=== PATIENT | male | born 1975 | race American Indian/Alaskan Native ===

== ENCOUNTER 2016-09-25 01:03 | Emergency (ER) | payer MEDICAID, OTHER ==
[2016-09-25 01:45] LABS: CHLORIDE,CL 103 mmol/L (101-111); SODIUM,NA 140 mmol/L (135-145)
[2016-09-25 01:56] LABS: ACETAMINOPHEN < 10
[2016-09-25 02:06] VITALS: BP 164/98
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
--- NOTE | 2016-09-25 18:44 | EKG ---
09/25/2016 - SUKHWINDER BENNETT - TIME: 1:16 a.m. EKG per my reading shows sinus rhythm at the rate of [address] changes[address] [facility] /[id number]
== END 2016-09-25 02:34 ==
LOC: DL.ED 01:03
DX: I63.40 Cerebral infarction due to embolism of unspecified cerebral artery (principal); F17.210 Nicotine dependence, cigarettes, uncomplicated
CPT/HCPCS: 36415; 51701; 70450; 71010; 80053; 82140; 82150; 82962; 83605; 83690; 83735; 84443; 84484; 85025; 85610; 93005; 99285; G0479; G0480

== ENCOUNTER 2016-11-03 20:59 | Emergency (ER) | payer MEDICAID, OTHER ==
[2016-11-03 21:03] VITALS: BP 156/100
--- NOTE | 2016-11-03 21:06 | EDM.PDOC ---
ED HPI Trauma - General Chief Complaint: Lower Extremity Injury/Pain Stated Complaint: AMB Time Seen by Provider: 11/03/16 21:05 Source: Reports: Patient, EMS History Limitations: Reports: No limitations - History of Present Illness INITIAL COMMENTS - FREE TEXT/NARRATIVE: jumped from bunk bed twisted ankle. Allergies/ADRs: Allergies No Known Allergies Allergy (Verified 11/03/16 20:59) Home Medications: Ambulatory Orders Aspirin 81 mg PO DAILY 11/03/16 [Confirmed 11/03/16] Past Medical History - Past Health History Medical/Surgical History: Denies Medical/Surgical History HEENT History: Reports: None Cardiovascular History: Reports: None Respiratory History: Reports: None Gastrointestinal History: Reports: None Genitourinary History: Reports: None Musculoskeletal History: Reports: None Neurological History: Reports: CVA, TIA Other Neuro History: acute slight stroke Psychiatric History: Reports: None Endocrine/Metabolic History: Reports: None Hematologic History: Reports: None Immunologic History: Reports: None Oncologic (Cancer) History: Reports: None Dermatologic History: Reports: None Social & Family History - Tobacco Use Smoking Status *Q: Never Smoker Years of Tobacco use: 20 Packs/Tins Daily: 1 - Recreational Drug Use Recreational Drug Use: No Review of Systems - Review of Systems Review Of Systems: ROS reveals no pertinent complaints other than HPI. Trauma Exam - Physical Exam Exam: See Below Exam Limited By: No limitations General Appearance: Reports: alert, WD/WN, mild distress, other (ankle pain) Head: Reports: atraumatic Ears: Reports: hearing grossly normal Throat/Mouth: Reports: Normal voice, No airway compromise Neck: Reports: non-tender, full range of motion Respiratory Exam: Reports: no respiratory distress Cardiovascular: Reports: regular rate, rhythm GI/Abdominal: Reports: soft, non tender Extremities: Reports: pain with movement, tenderness, unable to bear weight, other (swelling, no gorss D/D, NV wnl) Neurologic: Reports: no motor/sensory deficits, alert, normal mood/affect, oriented x 3 Skin: Reports: Normal color, Warm/dry Course - Vital Signs Last Recorded V/S: Last Vital Signs Temp 35.8 C 11/03/16 21:00 Pulse 80 11/03/16 21:00 Resp 20 11/03/16 21:00 BP 156/100 H 11/03/16 21:00 Pulse Ox 97 11/03/16 21:00 - Orders/Labs/Meds Orders: Active Orders 24 hr Category Date Time Status Ankle Min 3V Lt [CR] Urgent Exams 11/03/16 21:04 Taken Meds: Medications Discontinued Medications Generic Name Dose Route Start Last Admin Trade Name Linda PRN Reason Stop Dose Admin Morphine Sulfate 2 mg 11/03/16 21:12 11/03/16 21:23 Morphine IVPUSH 11/03/16 21:13 2 mg ONETIME ONE Administration Ondansetron HCl 4 mg 11/03/16 21:12 11/03/16 21:21 Zofran IV 11/03/16 21:13 4 mg ONETIME ONE Administration - Re-Assessments/Exams Free Text/Narrative Re-Assessment/Exam: 11/03/16 21:46 results discussed with Pt. Departure - Departure Time of Disposition: 21:46 Disposition: Home, Self-Care 01 Condition: good Clinical Impression: Left ankle sprain Qualifiers: Encounter type: initial encounter Involved ligament of ankle: calcaneofibular ligament Qualified Code(s): S93.412A - Sprain of calcaneofibular ligament of left ankle, initial encounter Instructions: Ankle Sprain, [id number] Forms: ED Department Discharge Additional Instructions: 1) elevate leg as much as possible next 48 hours 2) wear BECK for comfort 3) ice intermittently for swelling 4) follow up at clinic or recheck as needed 5) take tylenol or motrin for pain - My Orders Last 24 Hours: My Active Orders 11/03/16 21:04 Ankle Min 3V Lt [CR] Urgent - Assessment/Plan Last 24 Hours: My Active Orders 11/03/16 21:04 Ankle Min 3V Lt [CR] Urgent
[2016-11-03] MEDS ORDERED: Morphine 2 MG/ML Syringe IVPUSH ONE (21:12)
[2016-11-03] MEDS ORDERED: Ondansetron 4 MG/2 ML SDV IV ONE (21:12)
== END 2016-11-03 22:12 | disposition home or self-care (01) ==
LOC: DL.ED 20:59
DX: S93.412A Sprain of calcaneofibular ligament of left ankle, initial encounter (principal); Z86.73 Personal history of transient ischemic attack (TIA), and cerebral infarction without residual deficits; W06.XXXA Fall from bed, initial encounter
CPT/HCPCS: 73610; 96374; 96375; 99283; J2270; J2405

== ENCOUNTER 2020-10-29 17:34 | Emergency (ER) | payer MEDICAID, OTHER ==
[2020-10-29] MEDS ORDERED: Propofol 200 MG/20 ML SDV IV ONE (17:35)
[2020-10-29] MEDS ORDERED: fentaNYL 100 MCG/2 ML SDV IVPUSH ONE (17:41)
[2020-10-29] MEDS ORDERED: Ondansetron 4 MG/2 ML SDV IV ONE (17:41)
[2020-10-29] MEDS ORDERED: Sodium Chloride 0.9% 1,000 ML IV ONE (17:41)
[2020-10-29] MEDS ORDERED: Sodium Chloride 0.9% 10 ML Syringe FLUSH PRN (17:46)
[2020-10-29] MEDS ORDERED: Iopamidol 612 MG/ML 100 ML Bottle IVPUSH ONE (17:56)
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
[2020-10-29 18:18] LABS: ANION GAP 19.5 mEq/L (7-13); CHLORIDE,CL 102 mmol/L (98-107); SODIUM,NA 140 mmol/L (136-145)
[2020-10-29 18:23] LABS: PTT,PARTIAL THROMBOPLSTIN TIME 23.6 SEC (22.0-34.0)
[2020-10-29] MEDS ORDERED: Midazolam 1 MG/ML 2 ML SDV IVPUSH ONE (18:44)
[2020-10-29] MEDS ORDERED: HYDROmorphone 1 MG/ML Syringe IVPUSH ONE (18:44)
[2020-10-29] MEDS ORDERED: Midazolam 1 MG/ML 2 ML SDV ONE (18:45)
[2020-10-29] MEDS ORDERED: HYDROmorphone 1 MG/ML Syringe ONE (18:45)
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
[2020-10-29] MEDS ORDERED: Indomethacin 25 MG Cap PO ONE (23:04)
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
== END 2020-10-29 23:50 | disposition home or self-care (01) ==
LOC: DL.ED 17:34
DX: S73.034A Other anterior dislocation of right hip, initial encounter (principal); M25.562 Pain in left knee; Z79.82 Long term (current) use of aspirin; Z86.73 Personal history of transient ischemic attack (TIA), and cerebral infarction without residual deficits; V29.9XXA Motorcycle rider (driver) (passenger) injured in unspecified traffic accident, initial encounter
CPT/HCPCS: 27250; 36415; 70450; 71260; 72125; 72192; 73562-LT; 74177; 80053; 80305-QW; 80307; 81001; 82150; 83690; 85025; 85610; 85730; 86900; 86901; 93010; 96374; 96375; 99284; 99285-25; A9270-GY; J1170; J2250; J2405; J2704; J3010; J7030; Q9967

== ENCOUNTER 2021-05-28 15:45 | Emergency (ER) | payer MEDICAID, OTHER ==
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
[2021-05-28 15:56] VITALS: BP 133/97
[2021-05-28] MEDS ORDERED: Acetaminophen 325 MG Tab PO ONE (15:56)
[2021-05-28] MEDS ORDERED: Albuterol/Ipratropium 3.0-0.5 MG/3 ML Neb Soln NEB ONE (15:56)
[2021-05-28] MEDS ORDERED: Dexamethasone 4 MG/ML SDV IVPUSH ONE (15:56)
[2021-05-28] MEDS ORDERED: Ondansetron 4 MG/2 ML SDV IV ONE (15:57)
[2021-05-28] MEDS ORDERED: Codeine/Promethazine 10-6.25 MG/5 ML Syrup 5 ML UD Cup PO ONE (15:57)
[2021-05-28 16:34] VITALS: PULSE 109
[2021-05-28 17:12] LABS: PTT,PARTIAL THROMBOPLSTIN TIME 24.1 SEC (22.0-34.0)
[2021-05-28 17:15] LABS: ANION GAP 17.4 mEq/L (7-13); CHLORIDE,CL 102 mmol/L (98-107); SODIUM,NA 140 mmol/L (136-145)
[2021-05-28 19:11] LABS: AMPHETAMINES,URINE NEGATIVE (NEGATIVE); BARBITURATES,URINE NEGATIVE (NEGATIVE); BENZODIAZEPINE,URINE NEGATIVE (NEGATIVE); MDMA (ECSTASY), URINE NEGATIVE (NEGATIVE); METHADONE,URINE NEGATIVE (NEGATIVE); METHAMPHETAMINES,URINE POSITIVE (NEGATIVE); OPIATES,URINE POSITIVE (NEGATIVE); OXYCODONE,URINE NEGATIVE (NEGATIVE); PHENCYCLIDINE,URINE NEGATIVE (NEGATIVE); TCA,URINE NEGATIVE (NEGATIVE)
--- NOTE | 2021-05-28 19:35 | CT ---
PROCEDURE INFORMATION: Exam: CT Chest Without Contrast; Diagnostic Exam date and time: 05/28/2021 6:44 PM Age: 46 years old Clinical indication: Shortness of breath and other: Covid; Additional info: Covid, short of breath TECHNIQUE: Imaging protocol: Diagnostic computed tomography of the chest without contrast. Radiation optimization: All CT scans at this facility use at least one of these dose optimization techniques: automated exposure control; mA and/or kV adjustment per patient size (includes targeted exams where dose is matched to clinical indication); or iterative reconstruction. COMPARISON: CT Chest Abdomen Pelvis w Cont 10/29/2020 7:34 PM FINDINGS: Lungs: Unremarkable. No consolidation. No masses. Pleural spaces: Unremarkable. No pneumothorax. No pleural effusion. Heart: Unremarkable. No cardiomegaly. No pericardial effusion. Aorta: Unremarkable. No aortic aneurysm. Lymph nodes: Unremarkable. No enlarged lymph nodes. Bones/joints: Unremarkable. No acute fracture. Soft tissues: Unremarkable. IMPRESSION: No acute findings.
== END 2021-05-28 20:15 | disposition home or self-care (01) ==
LOC: DL.ED 15:45
DX: U07.1 COVID-19 (principal); E66.9 Obesity, unspecified
CPT/HCPCS: 36415; 71250; 80053; 80305; 81001; 82728; 83605; 84484; 85025; 85379; 85610; 85730; 86140; 87040; 94640; 96374; 96375; 99285; A9270; J1100; J2405; J7620-GY

== ENCOUNTER 2022-03-29 13:42 | Inpatient (IN) | payer MEDICAID, OTHER ==
[2022-03-29] MEDS ORDERED: Etomidate 2 MG/ML 20 ML SDV IVPUSH ONE (13:46)
[2022-03-29] MEDS ORDERED: Rocuronium 100 MG/10 ML MDV IV ONE (13:46)
[2022-03-29] MEDS ORDERED: Midazolam 50 MG in Sodium Chloride 0.9% 50 ML IV ONE (13:46)
[2022-03-29] MEDS ORDERED: propofoL 100 ML IV ONE (13:46)
[2022-03-29] MEDS ORDERED: Succinylcholine 200 MG/10 ML MDV IV ONE (13:46)
[2022-03-29] MEDS ORDERED: Lactated Ringers 1,000 ML IV ONE (13:46)
[2022-03-29] MEDS ORDERED: Sodium Chloride 0.9% 1,000 ML IV ONE ×3 (13:47→15:08)
[2022-03-29] MEDS ORDERED: Midazolam 1 MG/ML 2 ML SDV ONE (14:04)
[2022-03-29 14:09] LABS: PTT,PARTIAL THROMBOPLSTIN TIME 26.3 SEC (22.0-34.0)
[2022-03-29 14:15] LABS: ANION GAP 15.6 mEq/L (7-13); CHLORIDE,CL 101 mmol/L (98-107); SODIUM,NA 137 mmol/L (136-145)
[2022-03-29 14:17] LABS: AMPHETAMINES,URINE NEGATIVE (NEGATIVE); BARBITURATES,URINE NEGATIVE (NEGATIVE); BENZODIAZEPINE,URINE NEGATIVE (NEGATIVE); MDMA (ECSTASY), URINE NEGATIVE (NEGATIVE); METHADONE,URINE NEGATIVE (NEGATIVE); METHAMPHETAMINES,URINE POSITIVE (NEGATIVE); OPIATES,URINE NEGATIVE (NEGATIVE); OXYCODONE,URINE NEGATIVE (NEGATIVE); PHENCYCLIDINE,URINE NEGATIVE (NEGATIVE); TCA,URINE NEGATIVE (NEGATIVE)
[2022-03-29 14:41] LABS: ACETAMINOPHEN 0 ug/mL (10-30 (Therapeutic)); ESTIMATED GFR 78 mL/min (>=60)
[2022-03-29] MEDS ORDERED: Iopamidol 612 MG/ML 100 ML Bottle IVPUSH ONE (15:13)
[2022-03-29 17:47] LABS: O2 DELIVERY DEVICE VENTILATOR
[2022-03-29 17:49] LABS: ALLEN TEST PERFORMED
[2022-03-29] MEDS ORDERED: propofoL 100 ML ONE ×3 (17:49→23:29)
[2022-03-29] MEDS ORDERED: fentaNYL 500 MCG in Sodium Chloride 0.9% 50 ML IV SCH (21:00)
[2022-03-29] MEDS: Lactated Ringers 1,000 ML IV SCH (21:20)
[2022-03-29 21:30] LABS: CORONAVIRUS COVID-19 NAA NEGATIVE (NEGATIVE); RESPIRATORY SYNCYTIAL VIR NAA NEGATIVE (NEGATIVE)
[2022-03-29] MEDS: propofoL 100 ML IV SCH (21:34)
[2022-03-29] MEDS ORDERED: Midazolam 1 MG/ML 2 ML SDV IVPUSH ONE (21:38)
[2022-03-29] MEDS ORDERED: Norepinephrine 4 MG/4 ML SDV ONE (22:01)
[2022-03-29] MEDS ORDERED: Norepinephrine 4 MG in Dextrose 5% in Water 246 ML IV SCH ×2 (22:15)
[2022-03-29] MEDS: Carboxymethylcellulose Sodium 1% Ophth Gel 0.4 ML UD EYEBOTH PRN (22:16)
[2022-03-30 00:15] LABS: CHLORIDE,CL 102 mmol/L (98-107); SODIUM,NA 140 mmol/L (136-145)
[2022-03-30 00:21] LABS: ESTIMATED GFR 92 mL/min (>=60)
[2022-03-30] MEDS: Midazolam 50 MG in Sodium Chloride 0.9% 40 ML IV SCH ×2 (00:34→06:52)
[2022-03-30] MEDS: Lactated Ringers 1,000 ML IV SCH (00:37)
[2022-03-30] MEDS ORDERED: Midazolam 1 MG/ML 2 ML SDV IVPUSH ONE ×4 (00:46→06:21)
[2022-03-30] MEDS: Carboxymethylcellulose Sodium 1% Ophth Gel 0.4 ML UD EYEBOTH PRN ×2 (00:50→14:56)
[2022-03-30] MEDS ORDERED: propofoL 100 ML ONE ×3 (01:27→06:14)
[2022-03-30] MEDS: propofoL 100 ML IV SCH ×3 (01:52→06:41)
[2022-03-30 04:49] LABS: ANION GAP 16.4 mEq/L (7-13); CHLORIDE,CL 103 mmol/L (98-107); SODIUM,NA 139 mmol/L (136-145)
[2022-03-30 04:50] LABS: ESTIMATED GFR 91 mL/min (>=60)
[2022-03-30] MEDS ORDERED: Sodium Chloride 0.9% 1,000 ML IV ONE (05:14)
[2022-03-30] MEDS ORDERED: Piperacillin/Tazobactam 3.375 GM in Sodium Chloride 0.9% 100 ML IV ONE (06:07)
[2022-03-30] MEDS ORDERED: Midazolam 5 MG/ML 10 ML MDV ONE (06:13)
[2022-03-30 07:10] LABS: O2 DELIVERY DEVICE VENTILATOR
[2022-03-30 07:11] LABS: ALLEN TEST PERFORMED
[2022-03-30 07:42] LABS: BASE EXCESS ARTERIAL -1 mmol/L ((-2)-(+3)); O2 SATURATION ARTERIAL 93 % (95-100); PCO2 ARTERIAL 39 mmHg (35-45); PO2 ARTERIAL 68 mmHg (70-100)
[2022-03-30] MEDS ORDERED: Pantoprazole 40 MG Vial IVPUSH ONE (08:34)
[2022-03-30] MEDS ORDERED: Ondansetron 4 MG/2 ML SDV IV ONE (08:34)
[2022-03-30] MEDS: Sodium Chloride 0.9% 10 ML Syringe FLUSH PRN ×4 (09:01→21:07)
[2022-03-30 10:10] LABS: O2 SATURATION ARTERIAL 92 % (95-100); PCO2 ARTERIAL 36 mmHg (35-45); PO2 ARTERIAL 64 mmHg (70-100)
[2022-03-30 10:11] LABS: BASE EXCESS ARTERIAL -1 mmol/L ((-2)-(+3))
[2022-03-30] MEDS ORDERED: Ondansetron 4 MG/2 ML SDV IVPUSH PRN (11:32)
[2022-03-30] MEDS ORDERED: Albuterol/Ipratropium 3.0-0.5 MG/3 ML Neb Soln NEB PRN (11:32)
[2022-03-30] MEDS ORDERED: Ondansetron 4 MG Tab.DIS PO PRN (11:32)
[2022-03-30] MEDS ORDERED: Polyethylene Glycol 3350 Powder 17 GM Packet PO PRN (11:32)
[2022-03-30] MEDS ORDERED: Docusate Sodium 100 MG Cap PO PRN (11:32)
[2022-03-30] MEDS: Ampicillin/Sulbactam Na 3 GM in Sodium Chloride 0.9% 100 ML IV SCH ×3 (12:51→23:40)
[2022-03-30] MEDS: Heparin Sodium 5,000 Units/ML Vial SUBCUT SCH ×2 (14:36→21:08)
[2022-03-30] MEDS: Dextrose 5%-0.45% NaCl 1,000 ML IV SCH ×2 (14:55→23:37)
[2022-03-30] MEDS: Acetaminophen 325 MG Tab PO PRN (20:58)
[2022-03-30] MEDS: LORazepam 2 MG/ML SDV IVPUSH PRN (20:59)
[2022-03-30] MEDS: Pantoprazole 40 MG Vial IVPUSH SCH (21:03)
[2022-03-31] MEDS: Acetaminophen 325 MG Tab PO PRN ×2 (02:59→20:51)
[2022-03-31] MEDS: Heparin Sodium 5,000 Units/ML Vial SUBCUT SCH ×2 (05:56→13:27)
[2022-03-31] MEDS: Ampicillin/Sulbactam Na 3 GM in Sodium Chloride 0.9% 100 ML IV SCH ×3 (05:58→18:09)
[2022-03-31 06:52] LABS: ANION GAP 10.8 mEq/L (7-13)
[2022-03-31] MEDS: Pantoprazole 40 MG Vial IVPUSH SCH ×2 (09:29→20:50)
[2022-03-31] MEDS: Aspirin 81 MG Tab.Chew PO SCH (09:29)
[2022-03-31] MEDS: Dextrose 5%-0.45% NaCl 1,000 ML IV SCH ×2 (09:31→21:15)
[2022-03-31] MEDS ORDERED: Ondansetron 4 MG/2 ML SDV IVPUSH PRN (14:31)
[2022-03-31] MEDS ORDERED: Sodium Chloride 0.45% 1,000 ML IV SCH (14:45)
[2022-03-31] MEDS: Enoxaparin 40 MG/0.4 ML Syringe SUBCUT SCH (20:50)
[2022-03-31] MEDS: LORazepam 2 MG/ML SDV IVPUSH PRN (22:01)
[2022-04-01] MEDS: Ampicillin/Sulbactam Na 3 GM in Sodium Chloride 0.9% 100 ML IV SCH ×2 (00:50→06:28)
[2022-04-01] MEDS: LORazepam 2 MG/ML SDV IVPUSH PRN ×2 (04:19→18:39)
[2022-04-01] MEDS: Dextrose 5%-0.45% NaCl 1,000 ML IV SCH ×2 (06:28→14:46)
[2022-04-01 09:19] LABS: ANION GAP 12.7 mEq/L (7-13)
[2022-04-01] MEDS: Enoxaparin 40 MG/0.4 ML Syringe SUBCUT SCH (09:38)
[2022-04-01] MEDS: Aspirin 81 MG Tab.Chew PO SCH (09:38)
[2022-04-01] MEDS: Pantoprazole 40 MG Vial IVPUSH SCH ×2 (09:39→22:13)
[2022-04-01] MEDS ORDERED: Docusate Sodium 100 MG Cap PO PRN (10:23)
[2022-04-01] MEDS ORDERED: Lactulose Soln 10 GM/15 ML 30 ML UD Cup PO PRN (10:23)
[2022-04-01] MEDS: Levofloxacin/Dextrose 5%-Water 750 MG in Premix Bag 1 BAG IV SCH (11:15)
[2022-04-01] MEDS: metroNIDAZOLE/Normal Saline 500 MG in Premix Bag 100 BAG IV SCH ×2 (11:22→18:41)
[2022-04-01] MEDS: Acetaminophen 325 MG Tab PO PRN (18:40)
[2022-04-02] MEDS: Dextrose 5%-0.45% NaCl 1,000 ML IV SCH (00:59)
[2022-04-02] MEDS: LORazepam 2 MG/ML SDV IVPUSH PRN ×2 (01:55→23:58)
[2022-04-02] MEDS: metroNIDAZOLE/Normal Saline 500 MG in Premix Bag 100 BAG IV SCH ×3 (04:22→21:17)
[2022-04-02 08:15] LABS: ANION GAP 11.8 mEq/L (7-13)
[2022-04-02] MEDS: Enoxaparin 40 MG/0.4 ML Syringe SUBCUT SCH (11:04)
[2022-04-02] MEDS: Pantoprazole 40 MG Vial IVPUSH SCH ×2 (11:04→21:13)
[2022-04-02] MEDS: Aspirin 81 MG Tab.Chew PO SCH (11:04)
[2022-04-02] MEDS: Levofloxacin/Dextrose 5%-Water 750 MG in Premix Bag 1 BAG IV SCH (12:50)
[2022-04-02] MEDS: Carboxymethylcellulose Sodium 1% Ophth Gel 0.4 ML UD EYEBOTH PRN (21:16)
[2022-04-03] MEDS: LORazepam 2 MG/ML SDV IVPUSH PRN ×2 (04:29→09:58)
[2022-04-03] MEDS: metroNIDAZOLE/Normal Saline 500 MG in Premix Bag 100 BAG IV SCH (04:31)
[2022-04-03 07:11] LABS: ANION GAP 14.5 mEq/L (7-13)
[2022-04-03] MEDS: Enoxaparin 40 MG/0.4 ML Syringe SUBCUT SCH (09:55)
[2022-04-03] MEDS: Aspirin 81 MG Tab.Chew PO SCH (09:56)
[2022-04-03] MEDS: Pantoprazole 40 MG Vial IVPUSH SCH (09:56)
[2022-04-03] MEDS: Levofloxacin/Dextrose 5%-Water 750 MG in Premix Bag 1 BAG IV SCH (09:57)
[2022-04-03 13:28] VITALS: BP 148/81; PULSE 94
== END 2022-04-03 12:40 | disposition left against medical advice (07) | DRG 871 ==
LOC: DL.ED 13:42 → DL.MS 03-30 11:29 → EEVIPCON 03-30 11:29 → OBSVTOIN 03-30 11:29
PROVIDERS: ADMIT Hospitalist; ATTEND Internal Medicine
PROC: 0BH18EZ Insertion of Endotracheal Airway into Trachea, Via Natural or Artificial Opening Endoscopic (ICD-10-PCS; principal; 2022-03-29)
PROC: 3E03329 Introduction of Other Anti-infective into Peripheral Vein, Percutaneous Approach (ICD-10-PCS; 2022-03-29)
DX: A41.89 Other specified sepsis (principal); J18.9 Pneumonia, unspecified organism; J69.0 Pneumonitis due to inhalation of food and vomit; F12.929 Cannabis use, unspecified with intoxication, unspecified; N28.1 Cyst of kidney, acquired; K76.0 Fatty (change of) liver, not elsewhere classified; D69.6 Thrombocytopenia, unspecified; Z20.822 Contact with and (suspected) exposure to COVID-19; F15.129 Other stimulant abuse with intoxication, unspecified; T18.5XXA Foreign body in anus and rectum, initial encounter; Z79.82 Long term (current) use of aspirin; Z28.82 Immunization not carried out because of caregiver refusal
CPT/HCPCS: 0241U; 31500; 36415; 36600; 43752; 51702; 70450; 71045; 74176; 74177; 80048; 80053; 80143; 80179; 80202; 80305-QW; 80307; 81001; 82140; 82150; 82803; 82947; 83605; 83690; 83735; 84443; 84484; 85025; 85610; 85730; 87040; 87077; 87186; 87641; 93005; 94010; 96361; 96365; 96366; 96367; 96368; 96372; 96374; 96375; 96376; 99285; 99285-25; A9270-GY; C9113; G0378; J0295; J0330; J1644; J1650; J1956; J2060; J2250; J2405; J2543; J2704; J3010; J3370; J3490; J7030; J7042; J7050; J7060; J7120; Q9967

== ENCOUNTER 2022-07-18 22:37 | Emergency (ER) | payer MEDICAID, OTHER ==
[2022-07-18 23:02] LABS: CHLORIDE,CL 105 mmol/L (98-107); SODIUM,NA 140 mmol/L (136-145)
[2022-07-18 23:09] LABS: ESTIMATED GFR 108 mL/min (>=60)
[2022-07-19 00:06] LABS: METHAMPHETAMINES,URINE POSITIVE (NEGATIVE)
[2022-07-19 00:07] LABS: AMPHETAMINES,URINE NEGATIVE (NEGATIVE); BARBITURATES,URINE NEGATIVE (NEGATIVE); BENZODIAZEPINE,URINE NEGATIVE (NEGATIVE); MDMA (ECSTASY), URINE NEGATIVE (NEGATIVE); METHADONE,URINE NEGATIVE (NEGATIVE); OPIATES,URINE NEGATIVE (NEGATIVE); OXYCODONE,URINE NEGATIVE (NEGATIVE); PHENCYCLIDINE,URINE NEGATIVE (NEGATIVE); TCA,URINE NEGATIVE (NEGATIVE)
[2022-07-19 01:31] VITALS: BP 159/112; PULSE 91
== END 2022-07-19 00:40 ==
LOC: DL.ED 22:37
DX: R07.9 Chest pain, unspecified (principal); M62.81 Muscle weakness (generalized); F41.9 Anxiety disorder, unspecified; Z79.82 Long term (current) use of aspirin
CPT/HCPCS: 36415; 70450; 71045; 80053; 80305-QW; 81001; 83605; 84484; 85025; 87040; 93005; 99285; C1758